=== PATIENT | male | born 1975 | race Caucasian/White ===

== ENCOUNTER 2021-10-14 20:46 | Inpatient (IN) | payer OTHER ==
[~2021-10-14] VITALS: Ht 175.3 cm; Wt 63.5 kg
[2021-10-14] MEDS ORDERED: 0.9%NACL 1000ML 1,000 ML IV ONE (21:00)
[2021-10-14 21:11] LABS: BASOPHILS % (AUTO) 0.9 % (0.0-5.0); EOSINOPHILS % (AUTO) 0.9 % (0.0-8.0); LYMPHOCYTES % (AUTO) 28.6 % (21.0-51.0); MEAN CORPUSCULAR HEMOGLOBIN 31.4 pg (27.0-33.0); MEAN CORPUSCULAR VOLUME 89.8 fL (79-99); MONOCYTES % (AUTO) 8.9 % (3.0-13.0); NEUTROPHILS % (AUTO) 60.1 % (40.0-77.0); PLATELET COUNT (AUTO) 266 K/uL (130-400); RED BLOOD CELL COUNT(AUTO) 5.12 MIL/uL (4.50-6.20); RED CELL DISTRIBUTION WIDTH 12.1 % (11.0-15.5)
[2021-10-14 21:18] LABS: ABG OXYGEN SATURATION 96.4 % (95.0-99.0); ABG PCO2 26 mmHg (35-48)
[2021-10-14 21:33] LABS: CREATININE 1.2 mg/dL (0.5-1.5); POTASSIUM 4.9 mmol/L (3.5-5.1)
[2021-10-14 21:38] LABS: BILIRUBIN,TOTAL 0.8 mg/dL (0.2-1.0); TOTAL PROTEIN, SERUM 7.5 g/dL (6.0-8.3)
[2021-10-14] MEDS ORDERED: INSULIN HUMULIN R 100 UNIT/ML 3ML IV ONE (22:00)
[2021-10-14] MEDS ORDERED: [UNRECOGNIZED DRUG - OTHER] IV SCH (22:30)
[2021-10-14] MEDS ORDERED: INSULIN REGULAR, HUMAN 3ML 100 UNIT in 0.9%NACL 100ML 99 ML IV PRN ×2 (22:30)
[2021-10-14] MEDS ORDERED: POTASSIUM CHLORIDE 10MEQ/100ML 100 ML IV PRN (22:30)
[2021-10-14] MEDS ORDERED: MORPHINE 2 MG SYG IVP ONE (23:19)
[2021-10-14] MEDS ORDERED: POTASSIUM CHLORIDE 20MEQ/100ML 100 ML IV ONE (23:35)
[2021-10-14] MEDS: DEXTROSE 5 %-0.45 % NACL 1,000 ML IV PRN (23:53)
[2021-10-15] VITALS (7 sets, daily range): BP systolic 120–150; BP diastolic 69–87
[2021-10-15] MEDS: 0.9%NACL 1000ML 1,000 ML IV SCH ×2 (00:13→08:30)
[2021-10-15 00:58] LABS: APPEARANCE,URINE Clear (CLEAR); BILIRUBIN,URINE Negative (NEGATIVE); COLOR,URINE Yellow (YELLOW); GLUCOSE, URINE (UA) >=1000 mg/dL (NEGATIVE); KETONES,URINE >=160 mg/dL (NEGATIVE); LEUKOCYTE ESTERASE ,URINE Negative (NEGATIVE); NITRATE,URINE Negative (NEGATIVE); OCCULT BLOOD,URINE Negative (NEGATIVE); PH,URINE 5.5 (5.0-8.0); PROTEIN,URINE Negative (NEGATIVE); UROBILINOGEN,URINE 0.2 mg/dL (0.2-1.0)
[2021-10-15] MEDS: METHIMAZOLE 10 MG TAB PO SCH ×3 (01:00→16:54)
[2021-10-15 01:06] LABS: AMPHET/METH SCREEN,URINE NEGATIVE (NEGATIVE); BARBITURATE SCREEN, URINE NEGATIVE (NEGATIVE); BENZODIAZEPINES SCREEN,URINE NEGATIVE (NEGATIVE); CANNABINOID SCREEN,URINE NEGATIVE (NEGATIVE); COCAINE SCREEN,URINE POSITIVE (NEGATIVE); OPIATE SCREEN,URINE NEGATIVE (NEGATIVE); PHENCYCLIDINE SCREEN,URINE NEGATIVE (NEGATIVE)
[2021-10-15 01:09] LABS: BACTERIA,URINE None Seen /HPF (None Seen); RBC,URINE None Seen /HPF (0-1); WBC,URINE None Seen /HPF (0-1)
[2021-10-15] MEDS: CLINDAMYCIN IVPB 900MG/50ML 50 ML IV SCH ×2 (01:44→09:11)
[2021-10-15 03:21] LABS: CREATININE 0.7 mg/dL (0.5-1.5); MAGNESIUM 1.2 mg/dL (1.80-2.40); POTASSIUM 3.4 mmol/L (3.5-5.1)
[2021-10-15 04:44] LABS: CARBON DIOXIDE 20 mmol/L (21-32); CHLORIDE 104 mmol/L (101-111); CREATININE 0.8 mg/dL (0.5-1.5); GLOMERULAR FILTR. RATE CALC 110 mL/min (>60); GLUCOSE,RANDOM 264 mg/dL (70-105); POTASSIUM 3.9 mmol/L (3.5-5.1); SODIUM SERUM 134 mmol/L (136-145); UREA NITROGEN, BLOOD 15 mg/dL (7-18)
[2021-10-15 06:05] LABS: THYROID STIMULATING HORMONE < 0.01 uIU/mL (0.36-3.74)
[2021-10-15] MEDS ORDERED: INSULIN GLARGINE 100 UNITS/ML 10 ML VIAL SQ SCH ×3 (08:00→21:00)
[2021-10-15 08:28] LABS: CREATININE 0.8 mg/dL (0.5-1.5); MAGNESIUM 1.6 mg/dL (1.80-2.40)
[2021-10-15] MEDS ORDERED: MAGNESIUM 2GM PREMIX 50ML 50 ML IV PRN (08:30)
[2021-10-15 08:48] LABS: ABG BASE EXCESS -4.8 mmol/L (-2.0-3.0); ABG HCO3 19.3 mmol/L (21.0-28.0); ABG OXYGEN SATURATION 97.1 % (95.0-99.0); ABG PCO2 33 mmHg (35-48)
[2021-10-15] MEDS ORDERED: ENOXAPARIN SODIUM 40 MG/0.4 ML SYRINGE SQ SCH (09:00)
[2021-10-15] MEDS ORDERED: FAMOTIDINE 20MG VIAL IV SCH (09:00)
[2021-10-15] MEDS ORDERED: FAMOTIDINE 20MG TAB ONE (09:04)
[2021-10-15] MEDS: DEXTROSE 5 %-0.45 % NACL 1,000 ML IV PRN (09:10)
[2021-10-15] MEDS ORDERED: MORPHINE 4 MG SYG IM PRN (10:00)
[2021-10-15] MEDS: MORPHINE 2 MG SYG IVP PRN ×3 (10:22→20:33)
[2021-10-15] MEDS ORDERED: ONDANSETRON 4MG INJ IV PRN (10:30)
[2021-10-15] MEDS ORDERED: PHARMACY COMMUNICATION MISC PRN (10:30)
[2021-10-15] MEDS ORDERED: ACETAMINOPHEN 500 MG TABLET PO PRN (10:30)
[2021-10-15] MEDS: PROPRANOLOL HCL 10 MG TAB PO SCH ×2 (10:30→20:30)
[2021-10-15] MEDS ORDERED: LORAZEPAM 2 MG/ML 1 ML VIAL IVP PRN ×2 (10:30)
[2021-10-15] MEDS ORDERED: FOLIC ACID 1 MG TABLET PO SCH (10:30)
[2021-10-15] MEDS ORDERED: MULTIVITAMIN TABLET PO SCH (10:30)
[2021-10-15] MEDS ORDERED: THIAMINE HCL 100 MG/ML 2ML VIAL IM SCH (10:30)
[2021-10-15] MEDS ORDERED: INSULIN GLARGINE 100 UNITS/ML 10 ML VIAL SQ ONE (11:00)
[2021-10-15] MEDS ORDERED: PANTOPRAZOLE 40 MG/VIAL IVP SCH (11:00)
[2021-10-15] MEDS: AMOX/CLAV 875/125MG TAB PO SCH ×2 (11:23→20:40)
[2021-10-15] MEDS: INSULIN HUMULIN R 100 UNIT/ML 3ML SQ SCH ×3 (11:28→20:27)
[2021-10-15 11:36] LABS: CREATININE 0.7 mg/dL (0.5-1.5); POTASSIUM 3.8 mmol/L (3.5-5.1)
[2021-10-15 16:19] LABS: CREATININE 0.8 mg/dL (0.5-1.5); MAGNESIUM 1.8 mg/dL (1.80-2.40)
[2021-10-15] MEDS ORDERED: INSULIN HUMULIN R 100 UNIT/ML 3ML SQ SCH (17:00)
[2021-10-15 20:07] LABS: CREATININE 1.5 mg/dL (0.5-1.5); POTASSIUM 4.3 mmol/L (3.5-5.1)
== END 2021-10-15 21:13 | disposition left against medical advice (07) | DRG 638 ==
LOC: EDH 20:46 → EDHIP 20:47 → 2BH 10-15 06:15 → 3DH 10-15 18:22
PROVIDERS: ADMIT Internal Medicine; ATTEND Internal Medicine
DX: E10.10 Type 1 diabetes mellitus with ketoacidosis without coma (principal); E87.1 Hypo-osmolality and hyponatremia; F17.210 Nicotine dependence, cigarettes, uncomplicated; Z79.4 Long term (current) use of insulin; Z53.29 Procedure and treatment not carried out because of patient's decision for other reasons; F19.10 Other psychoactive substance abuse, uncomplicated; Z91.19 Patient's noncompliance with other medical treatment and regimen; E05.00 Thyrotoxicosis with diffuse goiter without thyrotoxic crisis or storm; E87.8 Other disorders of electrolyte and fluid balance, not elsewhere classified; E86.1 Hypovolemia; F14.10 Cocaine abuse, uncomplicated
CPT/HCPCS: 36415; 36600; 70486; 71045; 73630; 80048; 80053; 80305; 81001; 82010; 82803; 82948; 83036; 83735; 84439; 84443; 84481; 84484; 85025; 87040; 93005; 99291; G0378; J1650; J1815; J3411; J3475; J3480; J3490; J7030; J7042